=== PATIENT | male | born 1940 | race Caucasian/White ===

== ENCOUNTER 2019-01-19 12:03 | Inpatient (IN) ==
[2019-01-19] MEDS ORDERED: DILTIAZEM 25 MG/5 ML VIAL IV ONE (12:19)
--- NOTE | 2019-01-19 12:22 | Emergency Department Note ---
Arrhythmia/Palpitations HPI - General Chief Complaint: Arrhythmia/Palpitations Stated Complaint: elevated HR Time Seen by Provider: 01/19/19 12:19 Source: patient Mode of arrival: wheelchair Limitations: no limitations - History of Present Illness HPI Narrative: This patient was sent over from Dr. Montes's office because of a tachycardia. Dr. Montes reads his EKG is showing atrial flutter with 2-1 block at a rate of 141. He also has a loud murmur of mitral regurgitation. He has had some edema of his lower extremities recently. However he has had no chest pain or shortness of breath. - Related Data Home Medications Medication Instructions Recorded Confirmed Aspirin [Lite Coat Aspirin] 162.5 mg PO DAILY 01/19/19 01/19/19 Diltiazem HCl [Diltiazem 24Hr Cd] 240 mg PO HS 01/19/19 01/19/19 Lisinopril [Zestril] 10 mg PO DAILY 01/19/19 01/19/19 Triamterene/Hydrochlorothiazid 0.5 tab PO DAILY 01/19/19 01/19/19 [Triamterene-Hctz 37.5-25 mg Tb] Allergies Allergy/AdvReac Type Severity Reaction Status Date / Time No Known Drug Allergies Allergy Verified 01/19/19 12:10 Review of Systems All systems ED: reviewed and negative except as stated. Past Medical History - Past Medical History Medical history: Reports: atrial fibrillation, cancer (Esophageal), GERD, hypertension Surgical history ED: Reports: herniorrhaphy, other (Tumor removed from esophagus. 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 Absent: distention, tenderness Extremities: Present: pedal edema, pretibial edema Neurological: Present: alert Psychiatric: Present: normal affect Skin: Present: warm, dry Course Vital Signs Temperature 97.9 F 01/19/19 12:04 Pulse Rate 141 H 01/19/19 12:04 Respiratory Rate 14 01/19/19 12:04 Pulse Oximetry (%) 97 01/19/19 12:04 Temperature 97.9 F 01/19/19 12:04 Pulse Rate 78 01/19/19 13:20 Respiratory Rate 15 01/19/19 13:20 Blood Pressure 111/69 01/19/19 12:31 Pulse Oximetry (%) 97 01/19/19 13:20 Arrhythmia/Palpitations - [facility] Narrative Medical decision making narrative: This patient is in atrial flutter 2-1 block and also has heart failure. He has been given diltiazem started on a drip and Lasix intravenously. He will be admitted to the hospital by Dr. Calvillo. - Lab Data Lab results reviewed: Yes I reviewed the patient's lab results. Result diagrams: 01/19/19 12:26 01/19/19 12:26 Lab Results 01/19/19 01/19/19 01/19/19 Range/Units 12:26 12:26 12:26 WBC 6.3 (4.5-11.0) K/mcL RBC 3.40 L (4.50-5.90) M/mcL Hgb 9.8 L (13.5-16.5) g/dL Hct 31.1 L (41.0-55.0) % MCV 91.4 (80.0-100.0) fL MCH 28.9 (26.0-34.0) pg MCHC 31.6 (31.0-36.0) g/dL RDW 16.8 H (11.5-14.5) % Plt Count 294 (140-440) K/mcL MPV 7.0 L (7.4-10.4) fL Gran % 77.1 (38.0-78.0) % Lymph % (Auto) 11.1 L (15.5-49.0) % [place] % (Auto) 10.9 (1.0-12.0) % Eos % (Auto) 0 (0.0-7.0) % Baso % (Auto) 0.9 (0.0-2.0) % Gran # 4.8 (1.8-8.0) K/mcL Lymph # (Auto) 0.7 L (1.5-4.8) K/mcL [place] # (Auto) 0.7 (0.1-0.9) K/mcL Eos # (Auto) 0 (0.0-0.7) K/mcL Baso # (Auto) 0.1 (0.0-0.3) K/mcL Sodium 133 (133-145) mmol/L Potassium 4.4 (3.3-5.1) mmol/L Chloride 97 (96-108) mmol/L Carbon Dioxide 24 (22-30) mmol/L Anion Gap 12.0 (8-16) BUN 10 (8-23) mg/dl Creatinine 0.7 (0.7-1.2) mg/dl GFR Calculation 91 Glucose 100 (70-105) mg/dL Calcium 8.2 L (8.6-10.4) mg/dl Total Bilirubin 0.7 (0.0-1.0) mg/dL AST 22 (0-37) U/l ALT 15 (0-40) U/l Alkaline Phosphatase 59 (39-117) U/L Troponin T < 0.01 (0-0.03) ng/ml NT-Pro-B Natriuret Pep 1420.0 H (0-450) pg/ml Total Protein 6.4 (5.9-8.4) gm/dL Albumin 3.2 (3.2-5.2) gm/dL Globulin 3.2 (2.2-3.7) gm/dL Albumin/Globulin Ratio 1.0 (1.0-2.3) - Radiology Data Radiology results reviewed: Yes I reviewed the patient's radiology results. Disposition Pt seen by TRAVEL MANAGER/PA only: No Clinical Impression: Atrial flutter, Congestive heart failure Disposition: Xfer As Inpt ([facility]) Condition: Good Referrals: Sanket Spivey MD [Primary Care Provider] - Time of Disposition: 13:46
[2019-01-19] MEDS ORDERED: DILTIAZEM 125 MG in DEXTROSE 5% IN WATER 100 ML IV SCH (12:30)
[2019-01-19] MEDS ORDERED: LACTATED RINGERS 1,000 ML IV SCH (12:30)
--- NOTE | 2019-01-19 12:54 | XRay Report ---
INDICATION: Arrhythmia. TECHNIQUE: AP chest x-ray,portable semiupright COMPARISON: None FINDINGS:Small caliber left central venous catheter and Port-A-Cath. There is cardiomegaly. Findings consistent with bilateral pleural effusions. There is mild density in left retrocardiac region. There is right basilar pulmonary parenchymal infiltrate. Findings may be due to pulmonary edema and congestive heart failure but pneumonia should be excluded. Mid and upper lungs are negative IMPRESSION: 1. Cardiomegaly. Bilateral pleural effusions 2. Bibasilar infiltrates, right worse than left. Findings may be due to pulmonary edema but pneumonia is possible. Interpreted and Authenticated by: Madi Pena 01/19/19
[2019-01-19 13:01] LABS: Basophils # (Auto) 0.1 K/mcL (0.0-0.3); Basophils % (Auto) 0.9 % (0.0-2.0); Eosinophils # (Auto) 0 K/mcL (0.0-0.7); Eosinophils % (Auto) 0 % (0.0-7.0); Granulocytes % (Auto) 77.1 % (38.0-78.0); Lymphocytes # (Auto) 0.7 K/mcL (1.5-4.8); Lymphocytes % (Auto) 11.1 % (15.5-49.0); Mean Cell Volume 91.4 fL (80.0-100.0); Mean Corpuscular HGB Conc 31.6 g/dL (31.0-36.0); Monocytes # (Auto) 0.7 K/mcL (0.1-0.9); Monocytes % (Auto) 10.9 % (1.0-12.0); Platelet Count 294 K/mcL (140-440); Red Cell Distribution Width 16.8 % (11.5-14.5)
[2019-01-19] MEDS ORDERED: FUROSEMIDE 40 MG/4 ML VIAL IV ONE (13:06)
[2019-01-19 13:40] LABS: ALT/SGPT 15 U/l (0-40); Albumin 3.2 gm/dL (3.2-5.2); Alkaline Phosphatase 59 U/L (39-117); Blood Urea Nitrogen 10 mg/dl (8-23)
--- NOTE | 2019-01-19 15:11 | Internal Med History&Physical ---
Medical - H&P: HPI Patient information: Note initiated : 01/19/19 at 3:08 pm Service Date, if different from initiated Date: [] Patient: Deni Bravo 78 y/o M admitted on for Elevated HR. Chief Complaint: [] History of present illness: Mr. 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 Now in remission history of atrial fibrillation reasons to the emergency room after being seen in the dance artist office. The patient notes he has a history of atrial fibrillation, and his heart rate is intermittently elevated. During this time he feels that he is weak tired, and at times the heart rate comes down by itself. This time while being at the dance artist office his heart rate was in 140, persistent EKG showing atrial flutter and he was therefore sent to the emergency room. The patient denies any dizziness but does feel weak, has decreased effort tolerance during this episode, denies any chest pain, over the last few days he admits to having increased edema in his lower extremities. Denies any other acute complaints or symptoms. He denies any cough chest pain shortness of breath, headache, dizziness syncope, denies any nausea, does have chronic diarrhea, no new joint patient's skin rashes, does have chronic stigmata of aspirin use. In the emergency room patient was afebrile, heart rate 140 blood pressure 111/ 70 respirations 14 saturating 97% on room air. Chest x-ray shows bibasilar infiltrates versus CHF, bilateral pleural effusion. EKG shows atrial flutter 2-1 block reviewing previous EKGs it seems that the patient was in flutter in the past also. Patient is being admitted to the hospital for further management The patient does not take any anticoagulation now, in the past he was on Coumadin, and then briefly took Eliquis, Eliquis made him feel tachycardic and lethargic therefore he stopped it and started taking aspirin. Advised him that he really needs to consider taking an anticoagulation agent to reduce his risk of stroke. 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 Abdominal hernia repair Family history: reviewed and not pertinent Social history: Lives with , ex-smoker, alcohol use present Medical - H&P: Meds Home Medications Medication Instructions Recorded Confirmed Type Aspirin [Lite Coat Aspirin] 162.5 mg PO DAILY 01/19/19 01/19/19 History Diltiazem HCl [Diltiazem 24Hr Cd] 240 mg PO HS 01/19/19 01/19/19 History Lisinopril [Zestril] 10 mg PO DAILY 01/19/19 01/19/19 History Triamterene/Hydrochlorothiazid 0.5 tab PO DAILY 01/19/19 01/19/19 History [Triamterene-Hctz 37.5-25 mg Tb] Allergies Allergy/AdvReac Type Severity Reaction Status Date / Time No Known Drug Allergies Allergy Verified 01/19/19 12:10 Medical - H&P: Exam - Constitutional Vitals: Temp Pulse Resp BP Pulse Ox 97.9 F 48 L 16 132/82 97 01/19/19 12:04 01/19/19 14:56 01/19/19 14:56 01/19/19 14:46 01/19/19 14:56 Exam: GENERAL: The patient is a well-developed, well-nourished in no apparent distress. Is alert and oriented x3. VITAL SIGNS: Reviewed and as noted elsewhere. HEENT: Head is normocephalic and atraumatic. Extraocular muscles are intact. Pupils are equal, round, and reactive to light. Nares appeared normal. Mouth appears any without lesions. Mucous membranes are moist. NECK: Normal to inspection, Supple, No lymphadenopathy or thyromegaly. LUNGS: Air entry equal on both sides, but patient has decreased air entry at both bases, bilateral inspiratory crackles present. No wheezing HEART: Irregular tachycardic heart rate, patient has a systolic murmur in the mitral region 4 / 6, ABDOMEN: Soft, nontender, and nondistended. Positive bowel sounds. No hepatosplenomegaly was noted. EXTREMITIES: No cyanosis, clubbing, rash, lesions, bilateral edema present up to the knee NEUROLOGIC: Cranial nerves II through XII are grossly intact. Motor and Sensory System Grossly Intact PSYCHIATRIC: Normal affect, Normal Mood. Appropriate Behavior. SKIN: No ulceration or wounds noted, No jaundice, No rash noted. Patient does have stigmata of chronic aspirin Medical - H&P: Reslt - Labs CBC & Chem 7: 01/19/19 12:26 01/19/19 12:26 Labs: Short CBC 01/19/19 Range/Units 12:26 WBC 6.3 (4.5-11.0) K/mcL Hgb 9.8 L (13.5-16.5) g/dL Hct 31.1 L (41.0-55.0) % Plt Count 294 (140-440) K/mcL BMP 01/19/19 12:26 Sodium 133 Potassium 4.4 Chloride 97 Carbon Dioxide 24 BUN 10 Creatinine 0.7 Glucose 100 Calcium 8.2 L Cardiac Enzymes 01/19/19 Range/Units 12: Troponin T < 0.01 (0-0.03) ng/ml Liver Function 01/19/19 Range/Units 12:26 Total Bilirubin 0.7 (0.0-1.0) mg/dL AST 22 (0-37) U/l ALT 15 (0-40) U/l Alkaline Phosphatase 59 (39-117) U/L Albumin 3.2 (3.2-5.2) gm/dL Medical - H&P: A/P - Narrative A/P Narrative: A/P Monitor on PCU given plan for diuresis and cardizem titration. Atrial flutter with RVR -Patient previous ekg also suggest atrial flutter -on cardizem drip and oral cardizem for rate control -needs anticoagulation, will talk with him if he would consider pradaxa, -Given this is atrial flutter, he would benefit from EP eval for ablation. -Monitor HR and titrate cardizem Acute Congestive heart failure - noted on X ray -IV lasix -get echo Ca Esophagus -s/p chemo, radiation, and surgery -in remission, followed by Dr Delacruz HTN -bp stable on cardizem h/o Etoh use -MV<thiamine and folate DVT on hep sq Diet Cardiac
[2019-01-19] MEDS ORDERED: NALOXONE HCL 0.4 MG/ML VIAL IV PRN (15:39)
[2019-01-19] MEDS ORDERED: ONDANSETRON 4 MG/2 ML VIAL IV PRN (15:39)
[2019-01-19] MEDS ORDERED: ACETAMINOPHEN 325 MG TABLET PO PRN (15:39)
[2019-01-19] MEDS ORDERED: MAGNESIUM SULFATE 2 GM/50 ML BAG IV ONE (16:34)
[2019-01-19] MEDS: 0.9 % SODIUM CHLORIDE 250 ML IV SCH (17:40)
[2019-01-19] MEDS ORDERED: DILTIAZEM 30 MG TABLET PO ONE (20:26)
[2019-01-19] MEDS: HEPARIN 5,000 UNIT/ML VIAL SQ SCH (20:44)
[2019-01-19] MEDS: 0.9 % SODIUM CHLORIDE 10 ML SYRINGE IV SCH (20:44)
[2019-01-19] MEDS ORDERED: DILTIAZEM 240 MG CAP.XL.24H PO SCH (21:00)
[2019-01-19] MEDS ORDERED: DILTIAZEM 180 MG CAP.XL.24H PO SCH (21:00)
[2019-01-20] MEDS ORDERED: DILTIAZEM 125 MG in DEXTROSE 5% IN WATER 100 ML IV SCH (01:00)
[2019-01-20 05:51] LABS: Basophils # (Auto) 0.1 K/mcL (0.0-0.3); Basophils % (Auto) 1.3 % (0.0-2.0); Eosinophils # (Auto) 0 K/mcL (0.0-0.7); Eosinophils % (Auto) 0.2 % (0.0-7.0); Granulocytes % (Auto) 70.1 % (38.0-78.0); Lymphocytes # (Auto) 0.8 K/mcL (1.5-4.8); Lymphocytes % (Auto) 14.9 % (15.5-49.0); Mean Cell Volume 92.5 fL (80.0-100.0); Monocytes # (Auto) 0.7 K/mcL (0.1-0.9); Monocytes % (Auto) 13.5 % (1.0-12.0); Platelet Count 230 K/mcL (140-440); RBC 3.19 M/mcL (4.50-5.90); Red Cell Distribution Width 16.6 % (11.5-14.5)
[2019-01-20 06:02] LABS: ALT/SGPT 13 U/l (0-40); Albumin 2.6 gm/dL (3.2-5.2); Albumin/Globulin Ratio 0.9 (1.0-2.3); Alkaline Phosphatase 50 U/L (39-117); Bilirubin,Direct < 0.2 mg/dL (0.0-0.3); Blood Urea Nitrogen 9 mg/dl (8-23); Gamma Glutamyl Transpeptidase 19 U/L (8-61); Uric Acid 6.2 mg/dL (2.5-8.0)
[2019-01-20] MEDS: 0.9 % SODIUM CHLORIDE 250 ML IV SCH ×2 (07:31→10:21)
[2019-01-20] MEDS ORDERED: POTASSIUM CHLORIDE 20 MEQ PACKET PO ONE (07:57)
[2019-01-20] MEDS ORDERED: FUROSEMIDE 40 MG/4 ML VIAL IV ONE (07:58)
[2019-01-20] MEDS ORDERED: MAGNESIUM SULFATE 2 GM/50 ML BAG IV ONE (08:00)
--- NOTE | 2019-01-20 08:58 | Internal Med Progress Note ---
Medical - PN: Subj Patient information: Note initiated : 01/20/19 at 8:56 am Service Date, if different from initiated Date: [] Patient: Deni Bravo 78 y/o M admitted on 01/19/19 for Elevated HR. Chief Complaint: [] Interval history: Mr. 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 Now in remission history of atrial fibrillation reasons to the emergency room after being seen in the weaving teacher office. The patient notes he has a history of atrial fibrillation, and his heart rate is intermittently elevated. During this time he feels that he is weak tired, and at times the heart rate comes down by itself. This time while being at the weaving teacher office his heart rate was in 140, persistent EKG showing atrial flutter and he was therefore sent to the emergency room. The patient denies any dizziness but does feel weak, has decreased effort tolerance during this episode, denies any chest pain, over the last few days he admits to having increased edema in his lower extremities. Denies any other acute complaints or symptoms. He denies any cough chest pain shortness of breath, headache, dizziness syncope, denies any nausea, does have chronic diarrhea, no new joint patient's skin rashes, does have chronic stigmata of aspirin use. In the emergency room patient was afebrile, heart rate 140 blood pressure 111/ 70 respirations 14 saturating 97% on room air. Chest x-ray shows bibasilar infiltrates versus CHF, bilateral pleural effusion. EKG shows atrial flutter 2-1 block reviewing previous EKGs it seems that the patient was in flutter in the past also. Patient is being admitted to the hospital for further management The patient does not take any anticoagulation now, in the past he was on Coumadin, and then briefly took Eliquis, Eliquis made him feel tachycardic and lethargic therefore he stopped it and started taking aspirin. Advised him that he really needs to consider taking an anticoagulation agent to reduce his risk of stroke. 01/20 Patient seen examined, no acute overnight issues diuresed well after the dose of lasix yesterday, is negative 5624ml since yesterday, replace K and mg, d/c cardizem start on metoprolol and wean of cardizem drip d/c triamterene hctz, pt will benefit from lasix as a diuretic at this time. Pt has no new complaints or concerns. Pertinent ROS: Denies headache, dizziness Denies chest pain, palpitations Denies cough or shortness of breath Denies abdominal pain, nausea or vomiting. - Constitutional Vitals: Vital Signs Temp Pulse Resp BP Pulse Ox 98.6 F 48 L 15 110/67 97 01/20/19 04:00 01/19/19 15:53 01/20/19 07:00 01/20/19 07:00 01/20/19 07:00 Period Temp Pulse Resp BP Sys/[place] Pulse Ox Last 24 Hr 97.3 F-98.6 F 46-141 8-22 92-141/50-102 89-100 Intake and Output 01/19/19 01/20/19 01/20/19 21:59 05:59 13:59 Intake Total 1532 490 Output Total 4982 1518 100 Balance -3450 -1028 -100 Weight 166 lb 14.4 oz Intake & Output: Intake & Output 01/19/19 01/20/19 01/20/19 21:59 05:59 13:59 Intake Total 1532 490 Output Total 4982 1518 100 Balance -3450 -1028 -100 Weight 166 lb 14.4 oz Intake: IV 1142 30 Sodium Chloride 0.9% 250 ml @ 11 20 mls/hr IV .[id number] JESUS Rx#: [id number] Cardizem 125 mg In Dextrose 5% 81 in Water 100 ml @ 5 MG/HR 5 mls /hr IV Q12H [facility]ESUS Rx#:[id number] Lactated Ringers 1,000 ml @ 50 1000 mls/hr IV .Q20H JESUS Rx#: [id number] Oral 390 460 Output: Urine Catheter Amount 3632 1518 100 Void Amount 1350 Other: Meal Dinner Percent of Meal Consumed 75% Feeding Ability Independent Urine Appearance Clear Uretheral ([place]) Clear Clear Clear Urine Color Pale Uretheral ([place]) Pale Pale Pale Straw Urine Odor Normal Uretheral ([place]) Normal Normal # Voids 3 Exam: Constitutional; Afebrile, cooperative, alert, not in distress. Respiratory system: Air Entry equal on both sides, No crackles or wheezing, no rhonchi. CVS- Rate rhythm irregular, S1,S2 heard, no gallop, no rub. systolic murmur mitral region. Abdomen- Soft nontender abdomen, no organomegaly, no tenderness, no guarding or rigidity, TRAIN STARTER- AOOx3, moving all extremities, no gross focal deficit noted. Medical - PN: Obj Da - Labs CBC & Chem 7: 01/20/19 03:40 01/20/19 03:40 Labs: Abnormal Lab Results 01/20/19 01/20/19 01/19/19 03:40 03:40 12:26 RBC 3.19 L Hgb 9.4 L Hct 29.5 L RDW 16.6 H MPV 7.2 L Lymph % (Auto) 14.9 L [place] % (Auto) 13.5 H Lymph # (Auto) 0.8 L Creatinine 0.6 L Calcium 8.0 L 8.2 L NT-Pro-B Natriuret Pep 1420.0 H Total Protein 5.5 L Albumin 2.6 L Albumin/Globulin Ratio 0.9 L 01/19/19 12:26 RBC 3.40 L Hgb 9.8 L Hct 31.1 L RDW 16.8 H MPV 7.0 L Lymph % (Auto) 11.1 L [place] % (Auto) Lymph # (Auto) 0.7 L Creatinine Calcium NT-Pro-B Natriuret Pep Total Protein Albumin Albumin/Globulin Ratio Meds: Medications Acetaminophen (Tylenol) 650 mg PO Q4-6HP PRN PRN Reason: PAIN/FEVER > 101 Aspirin (Aspirin) 162 mg PO DAILY [facility] Heparin Sodium (Porcine) (Heparin) 5,000 unit SQ Q12 [facility] Last Admin: 01/19/19 20:44 Dose: 5,000 unit Documented by: Diltiazem HCl 125 mg/ Dextrose 125 mls @ 5 mls/hr IV Q12H [facility]; Protocol Last Admin: 01/20/19 02:00 Dose: 5 mg/hr, 5 mls/hr Documented by: Sodium Chloride (Sodium Chloride 0.9%) 250 mls @ 20 mls/hr IV .[id number] [facility] Last Admin: 01/20/19 07:31 Dose: Not Given Documented by: Magnesium Sulfate (Magnesium Sulfate) 2 gm in 50 mls @ 50 mls/hr IV ONCE ONE Stop: 01/20/19 08:59 Lisinopril (Zestril) 10 mg PO DAILY [facility] Metoprolol Tartrate (Lopressor) 50 mg PO BID [facility] Naloxone HCl (Narcan) 0.1 mg IV Q2MIN PRN PRN Reason: Opiate Reversal Ondansetron HCl (Zofran) 4 mg IV Q4-6HP PRN PRN Reason: Nausea And Vomiting Sodium Chloride (Saline Flush) 10 ml IV Q8 [facility] Last Admin: 01/19/19 20:44 Dose: 10 ml Documented by: Medical - PN: A/P - Time Spent With Patient Total time spent is greater than 50% in coordination of care (as documented) at patient's floor/unit and/or counseling patient: - Narrative A/P Narrative: A/P xfer to tele status. Atrial flutter with RVR -start on po metoprolol and wean off cardizem drip. -await echo results -outpatient cardiology eval for ablation would be beneficial. Acute Congestive heart failure -diuresing well -metoprolol added, can be transitited from lopressor to toporol as outpatient once stable dosing is achieved. Ca Esophagus -s/p chemo, radiation, and surgery -in remission, followed by Dr Delacruz HTN -bp stable, hold lisinopril, and triamteren-hctz, -start on metoprolol, lasix would be a better diuretic, with KCL supplementation in this patient. h/o Etoh use -MV<thiamine and folate DVT on hep sq Diet Cardiac Medical - PN: Qual - VTE Deep Vein Thrombosis/Pulmonary Embolism Present on Admission: No
[2019-01-20] MEDS ORDERED: METOPROLOL TARTRATE 50 MG TABLET PO SCH ×2 (09:00→21:00)
[2019-01-20] MEDS ORDERED: ASPIRIN 81 MG TAB.CHEW PO SCH (09:00)
[2019-01-20] MEDS ORDERED: LISINOPRIL 10 MG TABLET PO SCH (09:00)
[2019-01-20] MEDS: 0.9 % SODIUM CHLORIDE 10 ML SYRINGE IV SCH ×3 (09:19→20:25)
[2019-01-20] MEDS: HEPARIN 5,000 UNIT/ML VIAL SQ SCH ×2 (09:32→20:26)
[2019-01-20] MEDS ORDERED: NALOXONE HCL 0.4 MG/ML VIAL IV PRN (10:19)
[2019-01-20] MEDS ORDERED: ONDANSETRON 4 MG/2 ML VIAL IV PRN (10:19)
[2019-01-20] MEDS ORDERED: ACETAMINOPHEN 325 MG TABLET PO PRN (10:19)
[2019-01-20] MEDS ORDERED: METOPROLOL TARTRATE 5 MG/5 ML VIAL IV PRN (11:14)
[2019-01-20] MEDS ORDERED: FUROSEMIDE 40 MG/4 ML VIAL IV SCH (20:27)
[2019-01-21] MEDS: 0.9 % SODIUM CHLORIDE 250 ML IV SCH ×2 (00:12→14:30)
[2019-01-21] MEDS: 0.9 % SODIUM CHLORIDE 10 ML SYRINGE IV SCH ×5 (04:59→21:28)
[2019-01-21 05:55] LABS: Basophils # (Auto) 0.1 K/mcL (0.0-0.3); Basophils % (Auto) 1.5 % (0.0-2.0); Eosinophils # (Auto) 0 K/mcL (0.0-0.7); Eosinophils % (Auto) 0.5 % (0.0-7.0); Granulocytes % (Auto) 64.4 % (38.0-78.0); Lymphocytes % (Auto) 18.4 % (15.5-49.0); Mean Cell Volume 92.5 fL (80.0-100.0); Monocytes # (Auto) 0.8 K/mcL (0.1-0.9); Monocytes % (Auto) 15.2 % (1.0-12.0); Platelet Count 217 K/mcL (140-440); Red Cell Distribution Width 16.5 % (11.5-14.5)
[2019-01-21 06:05] LABS: ALT/SGPT 11 U/l (0-40); Albumin 2.7 gm/dL (3.2-5.2); Alkaline Phosphatase 47 U/L (39-117); Bilirubin,Direct < 0.2 mg/dL (0.0-0.3); Blood Urea Nitrogen 8 mg/dl (8-23); Gamma Glutamyl Transpeptidase 18 U/L (8-61); Uric Acid 6.1 mg/dL (2.5-8.0)
--- NOTE | 2019-01-21 08:33 | XRay Report ---
INDICATION: Tachycardia. Dyspnea. TECHNIQUE: AP chest x-ray,portable upright COMPARISON: Previous chest x-ray dated 01/19/2019 FINDINGS:Again demonstrated is small caliber left central venous catheter and Port-A-Cath. This is unchanged. There is cardiomegaly. This appears slightly improved. Bibasilar infiltrates may be slightly improved. The appearance remains consistent with congestive heart failure although pneumonia is possible. Pleural effusions are suspected. No new abnormalities. IMPRESSION: 1. Cardiomegaly, mildly improved since 01/19/2019 2. Bilateral, bibasilar infiltrates are also slightly improved. There are probable pleural effusions. 3. No new abnormality. Interpreted and Authenticated by: Madi Pena 01/21/19
[2019-01-21] MEDS ORDERED: FUROSEMIDE 40 MG/4 ML VIAL IV ONE (08:48)
[2019-01-21] MEDS ORDERED: ASPIRIN 81 MG TAB.CHEW PO SCH (09:00)
[2019-01-21] MEDS ORDERED: LISINOPRIL 10 MG TABLET PO SCH (09:00)
[2019-01-21] MEDS: METOPROLOL TARTRATE 50 MG TABLET PO SCH ×2 (09:23→21:27)
[2019-01-21] MEDS: FUROSEMIDE 20 MG TABLET PO SCH (09:23)
[2019-01-21] MEDS: HEPARIN 5,000 UNIT/ML VIAL SQ SCH (09:23)
[2019-01-21] MEDS ORDERED: DILTIAZEM 120 MG CAP.XL.24H PO ONE (11:58)
[2019-01-21] MEDS ORDERED: DILTIAZEM 25 MG/5 ML VIAL IV PRN (12:29)
[2019-01-21] MEDS: DABIGATRAN ETEXILATE MESYLATE 75 MG CAPSULE PO SCH ×2 (12:46→21:27)
--- NOTE | 2019-01-21 15:10 | Internal Med Progress Note ---
Medical - PN: Subj Patient information: Note initiated : 01/21/19 at 3:07 pm Service Date, if different from initiated Date: [] Patient: Deni Bravo 78 y/o M admitted on 01/19/19 for Elevated HR. Chief Complaint: [] Interval history: Mr. 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 The patient notes he has a history of atrial fibrillation, and his heart rate is intermittently elevated. During this time he feels that he is weak tired, and at times the heart rate comes down by itself. This time while being at the carpenter [employer] office his heart rate was in 140, persistent EKG showing atrial flutter and he was therefore sent to the emergency room. The patient denies any dizziness but does feel weak, has decreased effort tolerance during this episode, denies any chest pain, over the last few days he admits to having increased edema in his lower extremities. Denies any other acute complaints or symptoms. He denies any cough chest pain shortness of breath, headache, dizziness syncope, denies any nausea, does have chronic diarrhea, no new joint patient's skin rashes, does have chronic stigmata of aspirin use. In the emergency room patient was afebrile, heart rate 140 blood pressure 111/ 70 respirations 14 saturating 97% on room air. Chest x-ray shows bibasilar infiltrates versus CHF, bilateral pleural effusion. EKG shows atrial flutter 2-1 block reviewing previous EKGs it seems that the patient was in flutter in the past also. Patient is being admitted to the hospital for further management The patient does not take any anticoagulation now, in the past he was on Coumadin, and then briefly took Eliquis, Eliquis made him feel tachycardic and lethargic therefore he stopped it and started taking aspirin. Advised him that he really needs to consider taking an anticoagulation agent to reduce his risk of stroke. 01/20 Patient seen examined, no acute overnight issues diuresed well after the dose of lasix yesterday, is negative 5624ml since yesterday, replace K and mg, d/c cardizem start on metoprolol and wean of cardizem drip d/c triamterene hctz, pt will benefit from lasix as a diuretic at this time. Pt has no new complaints or concerns. 01/21 Pt seen examined, no acute issues rate still elevated, on po metoprolol 100mg bid, added cardizem at 120 today will up to 240 hold other bp meds start on po lasix neg > 5000ml since admission Pt is quite eager to go home, but his helped keeping him in the hospital today, (was planning to sign out AMA at a time) started on pradaxa, Major risks benefits of the medication discussed, all questions answered. Pertinent ROS: Denies headache, dizziness Denies chest pain, palpitations Denies cough or shortness of breath Denies abdominal pain, nausea or vomiting. - Constitutional Vitals: Vital Signs Temp Pulse Resp BP Pulse Ox 98.4 F 99 H 16 102/79 99 01/21/19 11:27 01/20/19 08:00 01/21/19 11:27 01/21/19 11:27 01/21/19 11:27 Period Temp Pulse Resp BP Sys/[place] Pulse Ox Last 24 Hr 98.1 F-98.9 F 16-18 93-127/61-89 94-99 Intake and Output 01/21/19 01/21/19 01/21/19 05:59 13:59 21:59 Intake Total 700 1100 Output Total 600 800 Balance 100 300 Intake & Output: Intake & Output 01/21/19 01/21/19 01/21/19 05:59 13:59 21:59 Intake Total 700 1100 Output Total 600 800 Balance 100 300 Intake: Oral 700 1100 Output: Urine Catheter Amount 600 800 Other: Meal Lunch Percent of Meal Consumed 100% Feeding Ability Independent Urine Appearance Clear Uretheral ([place]) Clear Urine Color Bright Yellow Pale Blood Tinged Uretheral ([place]) Bright Yellow Urine Odor Normal Stool Size Small Stool Color Yellow Stool Consistency Loose # Bowel Movements 300 Exam: Constitutional; Afebrile, cooperative, alert, not in distress. Respiratory system: Air Entry equal on both sides, No crackles or wheezing, no rhonchi. CVS- Rate tachycardic rhythm irregular, S1,S2 heard, no gallop, no rub. Abdomen- Soft nontender abdomen, no organomegaly, no tenderness, no guarding or rigidity, [employer]- AOOx3, moving all extremities, no gross focal deficit noted. Medical - PN: Obj Da - Labs CBC & Chem 7: 01/21/19 03:40 01/21/19 03:40 Labs: Abnormal Lab Results 01/21/19 01/21/19 01/20/19 03:40 03:40 03:40 RBC 3.20 L Hgb 9.5 L Hct 29.6 L RDW 16.5 H MPV Lymph % (Auto) [place] % (Auto) 15.2 H Lymph # (Auto) 1.0 L Creatinine 0.6 L 0.6 L Calcium 8.0 L 8.0 L NT-Pro-B Natriuret Pep Total Protein 5.4 L 5.5 L Albumin 2.7 L 2.6 L Albumin/Globulin Ratio 0.9 L 01/20/19 01/19/19 01/19/19 03:40 12:26 12:26 RBC 3.19 L 3.40 L Hgb 9.4 L 9.8 L Hct 29.5 L 31.1 L RDW 16.6 H 16.8 H MPV 7.2 L 7.0 L Lymph % (Auto) 14.9 L 11.1 L [place] % (Auto) 13.5 H Lymph # (Auto) 0.8 L 0.7 L Creatinine Calcium 8.2 L NT-Pro-B Natriuret Pep 1420.0 H Total Protein Albumin Albumin/Globulin Ratio Meds: Medications Acetaminophen (Tylenol) 650 mg PO Q4-6HP PRN PRN Reason: PAIN/FEVER > 101 Dabigatran (Pradaxa) 150 mg PO BID [facility] Last Admin: 01/21/19 12:46 Dose: 150 mg Documented by: Diltiazem HCl (Cardizem) 10 mg IV Q4HP PRN PRN Reason: Tachyarrhythmias Furosemide (Lasix) 20 mg PO DAILY [facility] Last Admin: 01/21/19 09:23 Dose: 20 mg Documented by: Sodium Chloride (Sodium Chloride 0.9%) 250 mls @ 20 mls/hr IV .[id number] [facility] Last Admin: 01/21/19 14:30 Dose: Not Given Documented by: Metoprolol Tartrate (Lopressor) 100 mg PO BID [facility] Last Admin: 01/21/19 09:23 Dose: 100 mg Documented by: Naloxone HCl (Narcan) 0.1 mg IV Q2MIN PRN PRN Reason: Opiate Reversal Ondansetron HCl (Zofran) 4 mg IV Q4-6HP PRN PRN Reason: Nausea And Vomiting Sodium Chloride (Saline Flush) 10 ml IV Q8 [facility] Last Admin: 01/21/19 14:32 Dose: 10 ml Documented by: Medical - PN: A/P - Time Spent With Patient Total time spent is greater than 50% in coordination of care (as documented) at patient's floor/unit and/or counseling patient: - Narrative A/P Narrative: A/P us. Atrial flutter with RVR -start on po metoprolol 100mg bid today, added cardizem at 120, titrate up as per response. . -echo shows normal lvef, mr moderate to severe -outpatient cardiology eval for ablation would be beneficial. -reviwwed plan of care with cardiology Dr lay. Acute Congestive heart failure -diuresing well -switch to oral meds Ca Esophagus -s/p chemo, radiation, and surgery -in remission, followed by Dr Delacruz HTN -bp stable, hold lisinopril, and triamteren-hctz, -start on metoprolol, lasix would be a better diuretic, with KCL supplementation in this patient. -uptitrate cardizem to rate control, -lisinopril can be added later if needed after adequate rate control is achieved. h/o Etoh use -MV<thiamine and folate DVT on hep sq Diet Cardiac Medical - PN: Qual - VTE Deep Vein Thrombosis/Pulmonary Embolism Present on Admission: No
[2019-01-22] MEDS: 0.9 % SODIUM CHLORIDE 250 ML IV SCH (00:21)
[2019-01-22] MEDS: 0.9 % SODIUM CHLORIDE 10 ML SYRINGE IV SCH (05:48)
[2019-01-22 06:21] LABS: ALT/SGPT 10 U/l (0-40); Albumin 2.7 gm/dL (3.2-5.2); Alkaline Phosphatase 44 U/L (39-117); Bilirubin,Direct < 0.2 mg/dL (0.0-0.3); Blood Urea Nitrogen 8 mg/dl (8-23); Gamma Glutamyl Transpeptidase 16 U/L (8-61); Uric Acid 6.1 mg/dL (2.5-8.0)
[2019-01-22 06:30] LABS: Basophils # (Auto) 0.1 K/mcL (0.0-0.3); Basophils % (Auto) 1.9 % (0.0-2.0); Eosinophils # (Auto) 0 K/mcL (0.0-0.7); Eosinophils % (Auto) 0.9 % (0.0-7.0); Granulocytes % (Auto) 59.8 % (38.0-78.0); Lymphocytes # (Auto) 1.1 K/mcL (1.5-4.8); Lymphocytes % (Auto) 23.8 % (15.5-49.0); Mean Cell Volume 92.2 fL (80.0-100.0); Mean Corpuscular HGB Conc 31.7 g/dL (31.0-36.0); Monocytes # (Auto) 0.6 K/mcL (0.1-0.9); Monocytes % (Auto) 13.6 % (1.0-12.0); Platelet Count 226 K/mcL (140-440); RBC 3.33 M/mcL (4.50-5.90); Red Cell Distribution Width 16.5 % (11.5-14.5)
[2019-01-22] MEDS: METOPROLOL TARTRATE 50 MG TABLET PO SCH (08:14)
[2019-01-22] MEDS: FUROSEMIDE 20 MG TABLET PO SCH (08:14)
[2019-01-22] MEDS: DABIGATRAN ETEXILATE MESYLATE 75 MG CAPSULE PO SCH (08:14)
[2019-01-22] MEDS ORDERED: DILTIAZEM 120 MG CAP.XL.24H PO SCH (09:00)
--- NOTE | 2019-01-22 11:00 | Discharge Summary ---
Medical - DS: Prov Patient information: Note initiated : 01/22/19 at 10:57 am Service Date, if different from initiated Date: [] Patient: Deni Bravo 78 y/o M admitted on 01/19/19 for Elevated HR. Chief Complaint: [] Date of admission: 01/19/19 15:38 Discharge date: 01/22/19 Primary care physician: Sanket Spivey Consults: 01/19/19 Consult to Physician [CONS] Stat Comment: Consulting Provider: Freda Calvillo Reason For Exam: Physician to Consult Discharging clinician: Freda Calvillo Medical - DS: Meds - Discharge Medications Prescriptions: Dabigatran Etexilate Mesylate [Pradaxa] 150 mg PO BID #60 cap Diltiazem [Cardizem Cd] 120 mg PO DAILY #30 cap.xl.24h Furosemide [Lasix] 20 mg PO DAILY #30 tab Metoprolol Tartrate 100 mg PO BID #60 tab Potassium Chloride 10 meq PO DAILY #30 capsule.er Active and Home Medications: Home Medications Aspirin [Lite Coat Aspirin] 162.5 mg PO DAILY 01/19/19 [History Confirmed 01/19/19 Last Taken 01/19/19 06:00] Diltiazem HCl [Diltiazem 24Hr Cd] 240 mg PO HS 01/19/19 [History Confirmed 01/19/19 Last Taken 01/19/19 06:00] Lisinopril [Zestril] 10 mg PO DAILY 01/19/19 [History Confirmed 01/19/19 Last Taken 01/19/19 06:00] Triamterene/Hydrochlorothiazid [Triamterene-Hctz 37.5-25 mg Tb] 0.5 tab PO DAILY 01/19/19 [History Confirmed 01/19/19 Last Taken 01/19/19 06:00] Medical - DS: Hosp Hospital course: Mr. 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 The patient notes he has a history of atrial fibrillation, and his heart rate is intermittently elevated. During this time he feels that he is weak tired, and at times the heart rate comes down by itself. This time while being at the machine candle molder office his heart rate was in 140, persistent EKG showing atrial flutter and he was therefore sent to the emergency room. The patient denies any dizziness but does feel weak, has decreased effort tolerance during this episode, denies any chest pain, over the last few days he admits to having increased edema in his lower extremities. Denies any other acute complaints or symptoms. He denies any cough chest pain shortness of breath, headache, dizziness syncope, denies any nausea, does have chronic diarrhea, no new joint patient's skin rashes, does have chronic stigmata of aspirin use. In the emergency room patient was afebrile, heart rate 140 blood pressure 111/ 70 respirations 14 saturating 97% on room air. Chest x-ray shows bibasilar infiltrates versus CHF, bilateral pleural effusion. EKG shows atrial flutter 2-1 block reviewing previous EKGs it seems that the patient was in flutter in the past also. Patient is being admitted to the hospital for further management The patient does not take any anticoagulation now, in the past he was on Coumadin, and then briefly took Eliquis, Eliquis made him feel tachycardic and lethargic therefore he stopped it and started taking aspirin. Advised him that he really needs to consider taking an anticoagulation agent to reduce his risk of stroke. 01/20 Patient seen examined, no acute overnight issues diuresed well after the dose of lasix yesterday, is negative 5624ml since yesterday, replace K and mg, d/c cardizem start on metoprolol and wean of cardizem drip d/c triamterene hctz, pt will benefit from lasix as a diuretic at this time. Pt has no new complaints or concerns. 01/21 Pt seen examined, no acute issues rate still elevated, on po metoprolol 100mg bid, added cardizem at 120 today will up to 240 hold other bp meds start on po lasix neg > 5000ml since admission Pt is quite eager to go home, but his helped keeping him in the hospital today, (was planning to sign out AMA at a time) started on pradaxa, Major risks benefits of the medication discussed, all questions answered. 01/22 Pt seen examined, heart rate much better now, continue present regime, stable for discharge, In Summary Patient presented to the hospital and admitted to the hospital with a diagnosis of atrial flutter with RVR. The patient was treated initially with IV Cardizem, and later switched to p.o. metoprolol. The patient heart rate is well controlled with 100 mg of metoprolol tartrate twice a day, Cardizem 120 mg once a day. The patient does have strong indication for anticoagulation for stroke prophylaxis. The patient was indeed taking anticoagulation in the past however stopped his Eliquis because of some dizziness. He would like to try Pradaxa. I am going to write a prescription for Pradaxa 150 mg twice a day. The patient's medications have been changed substantially. The patient will stop taking lisinopril he will stop taking the triamterene hydrochlorothiazide for his blood pressure management. The patient will start on metoprolol tartrate 100 mg twice a day, diltiazem 120 mg XL once a day, Lasix 20 mg once a day, potassium supplement 10 mg once a day, Pradaxa 150 mg twice a day. The patient has been educated to avoid use of aspirin or other NSAIDs while he is taking anticoagulant. The patient it seems has been in atrial flutter for a while, the treatment for atrial flutter would be ablation, he will need to be referred to an welding process specialist as an outpatient. I will leave this at the discretion of his treating machine candle molder Discharge diagnosis: atrial flutter with RVR - Time Spent with Patient Total time spent providing and/or coordinating discharge services: Greater than 30 minutes Medical - DS: Exam - Constitutional Vitals: Vital Signs Temp Pulse Resp BP Pulse Ox 01/22/19 07:55 98.2 F 16 130/71 98 01/22/19 07:50 98 01/22/19 04:08 99.0 F 18 113/71 100 01/21/19 23:57 98.0 F 18 120/80 100 01/21/19 21:38 99.3 F H 20 119/65 97 01/21/19 20:00 105 H 20 97 01/21/19 16:16 99.0 F 16 117/88 99 01/21/19 14:11 112/72 01/21/19 11:27 98.4 F 16 102/79 99 Intake and Output 01/21/19 01/22/19 01/22/19 21:59 05:59 13:59 Intake Total 480 360 360 Output Total 825 1225 Balance -345 -308 360 Intake: Oral 480 360 360 Output: Urine Catheter Amount 825 1225 Other: Meal Dinner Breakfast Percent of Meal Consumed 100% 100% Feeding Ability Independent Independent Urine Appearance Hematuria Clear Uretheral ([place]) Clear Urine Color [place] Uretheral ([place]) [place] Stool Size Moderate Copious Stool Color Yellow Yellow Stool Consistency Liquid Loose # Voids 1 # Bowel Movements 1 1 Weight 162 lb Additional comments: Constitutional; Afebrile, cooperative, alert, not in distress. Respiratory system: Air Entry equal on both sides, No crackles or wheezing, no rhonchi. CVS- Rate rhythm irregular, S1,S2 heard, no gallop, no rub. Abdomen- Soft nontender abdomen, no organomegaly, no tenderness, no guarding or rigidity, [employer]- AOOx3, moving all extremities, no gross focal deficit noted. Medical - DS: Data Labs on day of discharge: Labs from last 24 hours 01/22/19 01/22/19 04:00 04:00 WBC 4.7 RBC 3.33 L Hgb 9.7 L Hct 30.7 L MCV 92.2 MCH 29.2 MCHC 31.7 RDW 16.5 H Plt Count 226 MPV 7.3 L Gran % 59.8 Lymph % (Auto) 23.8 [place] % (Auto) 13.6 H Eos % (Auto) 0.9 Baso % (Auto) 1.9 Gran # 2.8 Lymph # (Auto) 1.1 L [place] # (Auto) 0.6 Eos # (Auto) 0 Baso # (Auto) 0.1 Sodium 135 Potassium 3.8 Chloride 100 Carbon Dioxide 27 Anion Gap 8.0 BUN 8 Creatinine 0.6 L GFR Calculation 97 Glucose 81 Uric Acid 6.1 Calcium 8.0 L Phosphorus 3.8 Magnesium 1.9 Total Bilirubin 0.4 Direct Bilirubin < 0.2 GGT 16 AST 14 ALT 10 Alkaline Phosphatase 44 Lactate Dehydrogenase 185 Total Protein 5.5 L Albumin 2.7 L Globulin 2.8 Albumin/Globulin Ratio 1.0 Triglycerides 66 Medical - DS: A/P - Patient/Caregiver Discharge Instructions Activity: increase activity as tolerated Diet: Cardiac Additional Instructions: Your medications have been changed, please make sure you understand the changes Please stop taking lisinopril and the triamterene hydrochlorothiazide for blood pressure management. Stop taking aspirin You will start on metoprolol tartrate 100 mg twice a day (control heart rate) , diltiazem 120 mg XL once a day (control heart rate) , Lasix 20 mg once a day (water pill) , potassium supplement 10 mg once a day, Pradaxa 150 mg twice a day (blood thinner) Avoid nsaids, while on pradaxa, if you notice uncontrolled bleeding, black stools , fever chest pain or any other acute concern go to the ER Follow up with Dr Montes in 1 week, Talk to Dr Montes regarding a referral to a welding process specialist for treatment of your heart condition. Follow up with PCP in 1 -2 weeks - Follow up Plan Follow up with: Sanket Spivey MD [Primary Care Provider] - 01/28/19 1:00 pm Josué Montes MD [Physician] - 03/04/19 9:30 am (Check in at 9:15) Disposition: Home, Self-Care Prognosis: Good Rehab Potential: Good I certify that the patient requires SNF services: No Overall status at discharge: patient is back to baseline Medical - DS: Qual - VTE Deep Vein Thrombosis/Pulmonary Embolism Present on Admission: No
== END 2019-01-22 12:30 | disposition home or self-care (01) | DRG 310 ==
LOC: ED 12:03 → ICU 15:35
PROVIDERS: ADMIT Internal Medicine; ATTEND Internal Medicine